=== PATIENT | female | born 1965 | race Caucasian/White ===

== ENCOUNTER 2018-05-07 14:30 | Inpatient (IN) | payer SELFPAY ==
[2018-05-07] MEDS ORDERED: cefTRIAXone SODIUM 2 GM in SODIUM CHL 0.9% 100ML MINI-BAG 100 ML IVPB ONE (14:59)
[2018-05-07] MEDS ORDERED: KETOROLAC TROMETHAMINE INJ 30 MG/ML VIAL IV ONE (14:59)
--- NOTE | 2018-05-07 15:02 | ED.PDOC ---
History of Present Illness - General Chief Complaint: Skin/Abrasion/Tear Stated Complaint: abscess Time Seen by Provider: 05/07/18 14:57 Source: patient Exam Limitations: no limitations - History of Present Illness Initial Comments: patient comes in today sent over for the clinic for worsening infection of her abdomen. Patient states 3 weeks ago she started with what looked like a boil to her on the right side or abdomen. Patient manually manipulated and placed things such as tea bags and vbhj-crs-kofgvau remedies on the area but it continued to worsen. Patient was seen on the sixth in the clinic and started on clindamycin but despite that the infection has significantly worsened. Prior to the clindamycin patient was having fever, chills, and nausea. Since the medication that part has gotten better but the wound on her abdomen has gotten significantly worse. Patient has a history of diabetes mellitus but does not use injections and is only on metformin. Patient has not had any recent injections of the abdomen no recent hospitalizations. Patient also has hyper tension but that is normally well controlled. Patient has never had similar infections. Timing/Duration: getting worse Severity: severe Location: torso Improving Factors: nothing Worsening Factors: nothing Associated Symptoms: fever, malaise Allergies/Adverse Reactions: Allergies NO KNOWN ALLERGY Allergy (Verified 05/07/18 14:49) Home Medications: Ambulatory Orders Clindamycin HCl 300 mg PO TID 05/07/18 Lisinopril 20 mg PO DAILY 05/07/18 Metformin HCl 1,000 mg PO BID 05/07/18 Review of Systems - Review of Systems Constitutional: States: chills, fever, malaise EENTM: States: no symptoms reported Respiratory: States: no symptoms reported Cardiology: States: no symptoms reported Gastrointestinal/Abdominal: States: see HPI Genitourinary: States: no symptoms reported Past Medical History (General) - Patient Medical History Hx Stroke: No Hx Congestive Heart Failure: No Hx Hypertension: Yes Hx Diabetes: Yes Surgical History: tonsillectomy - Vaccination History Hx Influenza Vaccination: No Hx Pneumococcal Vaccination: No - Social History Hx Tobacco Use: Yes Family Medical History - Family History Mother Family History: Unknown Living Status: Unknown Physical Exam - Physical Exam General Appearance: Alert, No apparent distress Eyes, Ears, Nose, Throat Exam: PERRL/EOMI, normal ENT inspection, TMs normal Neck: non-tender, full range of motion, supple, normal inspection Cardiovascular/Chest: normal peripheral pulses, regular rate, rhythm, no edema, no gallop, no murmur Respiratory: chest non-tender, lungs clear, normal breath sounds, no respiratory distress Gastrointestinal/Abdominal: other - 7 x 5 inch area of induration, calor, and erythema. Central area of scabbed purulent lesions with no fluctulance Back Exam: normal inspection Extremity: normal range of motion, non-tender Neurologic: alert, oriented x 3 Skin Exam: other Skin Problem Location: torso Skin Character: drainage, erythema, thickening, warm Progress - Progress Progress: 05/07/18 15:56 discussed with production posting clerk practioner Heath Fine. Will get soft tissue ultrasound and admit. - Results/Orders Results/Orders: 05/07/18 14:59 [email or web address] SODIUM [Rocephin] 2 gm Sodium Chl 0.9% 100Ml Mini-Bag [NS 100ml MINI-BAG+] 100 ml IVPB ONCE 05/07/18 15:00 WOUND CULTURE Stat 05/07/18 15:51 1000MG ONCE ONE (ED ORDER) Vancomycin HCl Inj 1,000 mg Sodium Chloride 0.9% 250Ml [NS 250ml] 250 ml IVPB ONCE 05/07/18 15:54 Soft Tissue,Abdomen [US] Stat Laboratory Results WBC 12.6 K/mm3 (4.8-10.8) H 05/07/18 14:59 RBC 5.01 M/mm3 (4.20-5.40) 05/07/18 14:59 Hgb 14.9 gm/dL (12.0-16.0) 05/07/18 14:59 Hct 44.4 % (36.0-47.0) 05/07/18 14:59 MCV 88.6 fl (81.0-99.0) 05/07/18 14:59 MCH 29.7 pg (27.0-31.0) 05/07/18 14:59 MCHC 33.6 g/dL (33.0-37.0) 05/07/18 14:59 RDW 12.8 % (11.5-14.5) 05/07/18 14:59 Plt Count 364 K/mm3 (130-400) 05/07/18 14:59 MPV 8.9 fl (7.40-10.4) 05/07/18 14:59 Absolute Neuts (auto) 9.10 K/uL (1.8-6.8) H 05/07/18 14:59 Absolute Lymphs (auto) 2.10 K/uL (1.0-3.4) 05/07/18 14:59 Absolute Monos (auto) 1.00 K/uL (0.2-0.8) H 05/07/18 14:59 Absolute Eos (auto) 0.20 K/uL (0.0-0.4) 05/07/18 14:59 Absolute Basos (auto) 0.10 K/uL (0.0-0.1) 05/07/18 14:59 Neutrophils % 72.2 % (42.0-78.0) 05/07/18 14:59 Lymphocytes % 16.8 % (20.0-50.0) L 05/07/18 14:59 Monocytes % 8.2 % (2.0-9.0) 05/07/18 14:59 Eosinophils % 1.7 % (1.0-5.0) 05/07/18 14:59 Basophils % 1.1 % (0.0-2.0) 05/07/18 14:59 Sodium 134 mmol/L (135-145) L 05/07/18 14:59 Potassium 3.8 mmol/L (3.6-5.0) 05/07/18 14:59 Chloride 100 mmol/L (101-111) L 05/07/18 14:59 Carbon Dioxide 25 mmol/L (21-31) 05/07/18 14:59 Anion Gap 12.8 (12-18) 05/07/18 14:59 BUN 22 mg/dL (7-18) H 05/07/18 14:59 Creatinine 0.70 mg/dL (0.6-1.3) 05/07/18 14:59 BUN/Creatinine Ratio 31.4 (10-20) H 05/07/18 14:59 Random Glucose 315 mg/dL (70-105) H 05/07/18 14:59 Serum Osmolality 283.6 mOsm/L (275-295) 05/07/18 14:59 Lactic Acid 1.1 mmol/L (0.5-2.2) 05/07/18 14:59 Calcium 9.0 mg/dL (8.4-10.2) 05/07/18 14:59 Total Bilirubin 0.7 mg/dL (0.2-1.0) 05/07/18 14:59 AST 18 IU/L (10-42) 05/07/18 14:59 ALT 22 IU/L (10-60) 05/07/18 14:59 Alkaline Phosphatase 57 IU/L (42-121) 05/07/18 14:59 Serum Total Protein 7.3 gm/dL (6.4-8.2) 05/07/18 14:59 Albumin 3.9 g/dl (3.2-5.5) 05/07/18 14:59 Globulin 3.4 gm/dL (2.3-3.5) 05/07/18 14:59 Albumin/Globulin Ratio 1.1 (1.1-1.9) 05/07/18 14:59 Departure - Departure Clinical Impression: Cellulitis Qualifiers: Site of cellulitis: trunk Site of cellulitis of trunk: abdominal wall Qualified Code(s): L03.311 - Cellulitis of abdominal wall Disposition: Discharge to Home or Self Care Condition: Fair Departure Forms: ED Discharge - Pt. Copy, Patient Portal Self Enrollment Instructions: DI for Abrasion Referrals: Jeni Butcher NP [Primary Care Provider] - 1-2 Weeks Home Medications: Ambulatory Orders Clindamycin HCl 300 mg PO TID 05/07/18 Lisinopril 20 mg PO DAILY 05/07/18 Metformin HCl 1,000 mg PO BID 05/07/18
[2018-05-07] MEDS ORDERED: SODIUM CHL 0.9% 100ML MINI-BAG 100 ML IVPB ONE (15:06)
[2018-05-07] MEDS ORDERED: VANCOMYCIN HCL INJ 1,000 MG in SODIUM CHLORIDE 0.9% 250ML 250 ML IVPB ONE (15:51)
[2018-05-07] MEDS ORDERED: SODIUM CHLORIDE 0.9% 250ML 250 ML ONE (15:58)
[2018-05-07] MEDS ORDERED: VANCOMYCIN HCL INJ 1,000 MG VIAL IVPB ONE (15:58)
--- NOTE | 2018-05-07 16:43 | US ---
EXAM DESCRIPTION: Soft Tissue,Abdomen CLINICAL HISTORY: ?panniculitus vs abscess KNot on Right lower abdomen for 3 weeks, more inflamed with skin breakdown COMPARISON: None. TECHNIQUE: 2-D sonography FINDINGS: Exam reveals a cystic and solid region in the right lower quadrant in the subcutaneous tissues consistent with a clinical diagnosis of panniculitis. I feel there is a small subcutaneous abscess also present. The region measures 3.74 x 6.71 x 3.83 cm IMPRESSION: A subcutaneous region of inflammation /abscess formation is observed in the anterior tissues of the abdominal wall to the right of midline Electronically signed by: Thierry Kwon MD 05/07/2018 4:41 PM CDT
--- NOTE | 2018-05-07 16:43 | HP ---
SUPERVISING PHYSICIAN: Roverto Agustin MD CHIEF COMPLAINT: Cellulitis abscess. HISTORY OF PRESENT ILLNESS: Ms. Rousseau is a 52 year-old female patient who was sent from [facility] today with an worsening area of cellulitis to her abdomen on the right side. The patient notes that over the last three weeks she had developed what she thought was a boil on the right side of her abdomen and at some point self-manipulated it trying to resolve with tea bags and mpig-lwm-[id number] remedies but the area continued to increase in erythema and pain. She was then seen at [facility] on 05/04/18 and started on Clindamycin and failed to respond to treatment to any significant amount. She noted she had been having some fever, chills and nausea and that the wounds on her abdomen over the last several days significantly worsened. She does have a history of diabetes but does not use any insulin and denies any recent trauma to her abdomen. Laboratory studies showed she had a white count of 12,600 at time of admission with early left shift. Vital signs showed she was afebrile with a temperature of 96.8 and chemistries showed her lactic was within normal limits at 1.1. Dr. Cespedes, Emergency Room physician, requested the patient be admitted for further evaluation and treatment with concerns for possible area of abscess with panniculitis of the side of her abdomen, having failed to respond to her outpatient treatment measures. She was started on vancomycin in the Emergency Room as well as Rocephin. The patient is now going to be admitted to the medical/surgical floor for ongoing further evaluation and treatment as well as surgical consultation by Dr. Mc and ultrasound to further assess the abdomen for a possible abscess needing incision and drainage. PAST MEDICAL HISTORY: 1. Hypertension. 2. Diabetes mellitus type 2 on oral therapy. 3. Chronic nicotine addiction in a current smoker. 4. Gastroesophageal reflux disease. 5. Depression and anxiety. PAST SURGICAL HISTORY: 1. Hysterectomy and removal of benign cervical tumor in 2011. 2. Cholecystectomy. 3. Caesarean section. CURRENT MEDICATIONS: 1. Hydrochlorothiazide 12.5 mg daily. 2. Lisinopril 20 mg daily. 3. Metformin 1000 mg twice a day. ACUTE MEDICATIONS: 1. Clindamycin 300 mg 3 times a day since 05/04/18. 2. P.r.n. albuterol nebulizer as needed for shortness of breath. ALLERGIES: No known drug allergies. FAMILY HISTORY: Noncontributory. 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 She is single. She lives in [place]. She smokes currently about half a pack a day and has since age 19. She denies any alcohol usage, having her last drink in 2001. Denies any illicit drug use. REVIEW OF SYSTEMS: CONSTITUTIONAL: As noted that she has had some fevers, chills and general malaise for the last 2 to 3 days. HEENT: She denies any nasal congestion, headaches. sore throat, earaches, headaches. CHEST: Denies shortness of breath, wheezing or coughing. HEART: Denies chest pain, palpitations or syncopal episodes. ABDOMEN: As noted in history of present illness. She denies any abdominal pain other than the area noted on history of present illness to abdominal wall but denies any changes in bowel habits, hematochezia, hematemesis. GENITOURINARY: Denies dysuria, hematuria, polyuria. NEUROLOGIC: Denies headaches, seizure activities, ataxia. PHYSICAL EXAMINATION: VITAL SIGNS: Temperature 96.8, pulse 82, blood /72, respirations 18 , saturation 99% on room air. Admission weight 78.9 kg. GENERAL: On examination in the Emergency Room the patient appeared to be comfortable and in no acute distress, although she was tearful and a little anxious. She was alert. HEENT: Tympanic membranes clear bilaterally. Oropharynx pink, moist without any lesions. NECK: Supple, non-tender, full range of motion, no jugular venous distention. CHEST: Clear to auscultation bilaterally without any rhonchi, rales, or wheezes. CARDIOVASCULAR: Regular rate and rhythm without appreciable murmurs, rubs, or gallops. ABDOMEN: Soft except for a 7 x 5 area of induration, erythema to the right lower panniculus in the lateral aspect that shows some area of ecchymosis and mottleing with some fluctuation and areas of open sinuses but no obvious drainage for cultures. The area was noted to be indurated and quite tender on palpation and also mottleing along with the ecchymosis. EXTREMITIES: Without cyanosis, clubbing, or edema. NEUROLOGIC: She is alert and oriented x3. Facial features are symmetrical. Extraocular movements within normal limits. There is no noted nystagmus. Cranial nerves II through XII are grossly intact. LABORATORY: White count showed a leukocytosis of 12,600 with a left shift. Chemistries showed a mildly low sodium of 134, potassium 3.8, BUN 22, creatinine 0.7 with lactic acid 1.1. Liver functions all show to be within normal limits. Urinalysis pending. MICROBIOLOGY: No cultures pending. Waiting for her assessment, possible incision and drainage surgery in the morning. RADIOLOGY: Ultrasound of the abdomen of area in question per radiology interpretation shows a subcutaneous region, inflammation/abscess formation observed in the anterior tissues of the abdominal wall, midline, measuring 3.74 cm x 6.71 x 3.8 cm consistent with clinical diagnosis of panniculitis. ASSESSMENT: 1. Panniculitis with abscess to the right lower quadrant having failed to response to outpatient treatment with clindamycin. 2. Type 2 diabetes mellitus on oral therapy. 3. History of hypertension. 4. History of gastroesophageal reflux disease. PLAN: The patient is going to be admitted and started on IV antibiotics to include vancomycin and Rocephin. Dr. Mc has been consulted and has recommended the patient be made n.p.o. overnight with plans to possibly undergo incision and drainage without sedation in the operating room once he is able to review the ultrasound with radiology. She will be on insulin slightly scale per protocol. Will hold off on Lovenox tonight awaiting possible surgery in the morning. Will resume home medications but hold those as appropriate in the morning prior to any procedures. She will go ahead and have a nicotine patch placed and is again encouraged to stop smoking with warnings of slow healing with wound management. Will go ahead and start her on some IV fluids tonight as well as vancomycin per pharmacy protocol and continued Rocephin awaiting further evaluation in the morning by Dr. Mc. Will check labs in the morning to include a CBC and BNP and anticipate length of stay to be at least 2 to 3 days. Most certainly if she does have incision and drainage she will most likely benefit from aggressive wound management which will need to be started on discharge planning. Until discharge, we will continue to monitor appropriately. #[id number] [facility]
[2018-05-07] MEDS ORDERED: ONDANSETRON INJ 4 MG/2 ML VIAL IV PRN (17:20)
[2018-05-07] MEDS ORDERED: SODIUM CHLORIDE 0.9% (FLUSH) 10 ML SYG IV PRN (17:20)
[2018-05-07] MEDS ORDERED: VANCOMYCIN PER PHARMACY INJ SCH (17:30)
[2018-05-07] MEDS ORDERED: IV SET AND CAP CHANGE INJ INJ SCH (17:30)
[2018-05-07] MEDS: MORPHINE SULFATE INJ 10 MG/ML VIAL IV PRN ×2 (17:51→22:39)
[2018-05-07] MEDS ORDERED: DEXTROSE 50% 25 GM/50 ML SYG IV PRN (18:32)
[2018-05-07] MEDS ORDERED: GLUCAGON INJ 1 MG VIAL SUBCU PRN (18:32)
[2018-05-07] MEDS ORDERED: INSULIN LISPRO 100 UNITS/ML PEN SUBCU ONE (19:55)
[2018-05-07] MEDS ORDERED: CHLORHEXIDINE GLUCONATE 4 % 15 ML UD TOP ONE (19:58)
[2018-05-07] MEDS: NICOTINE PATCH 14 MG TD SCH (20:21)
--- NOTE | 2018-05-07 20:41 | CONS ---
DATE OF CONSULTATION: 05/07/18 HISTORY OF PRESENT ILLNESS: The patient is a 43 year-old female who has had a lesion on her right lower abdominal wall for 3 weeks. She had tried to treat it personally and it worsened. She was started on clindamycin at the [facility], but it continues to worsen. Her blood sugars are elevated and she has developed fever, chills and nausea, and was admitted for failure of outpatient therapy of cellulitis or panniculitis of the right lower abdominal wall. PAST MEDICAL HISTORY: 1. Diabetes for which she takes oral agents. 2. History of hypertension. PAST SURGICAL HISTORY: She has had no abdominal surgery. 1. Status post tonsillectomy. CURRENT MEDICATIONS: 1. Clindamycin. 2. Lisinopril. 3. Metformin. ALLERGIES: NO KNOWN DRUG ALLERGIES. FAMILY HISTORY: Unremarkable. SOCIAL HISTORY: The patient is . Continues to smoke. REVIEW OF SYSTEMS: She denies productive cough, weight loss, chest pain, shortness of breath and denies change in her bowel habits, hematemesis, hematochezia, melena and denies urinary symptoms. PHYSICAL EXAMINATION: VITAL SIGNS: Currently afebrile. Blood pressure 148/86, pulse 86, respiratory rate 20. GENERAL: The patient is awake, alert, cooperative and in mild to moderate distress. HEENT: Head and neck examination reveals her sclera to be nonicteric. Mucous membranes are moist. NECK: She has no masses. BACK: Without CVA tenderness. ABDOMEN: Soft and benign except for the panniculus in the right lower quadrant. She has a large area of erythema approximately 15 x 20 cm. Centrally there is an area of ecchymosis and mottling with fluctuance and several open sinuses which are not currently draining. It is quite tender with a central area of induration underlying the area of mottling and ecchymosis. EXTREMITIES: Without clubbing, cyanosis or edema. LABORATORY: White count 12,000, 72% neutrophils, hemoglobin 14.9, platelet count 364. Chemistries reveal blood sugar 315, potassium 3.8, creatinine 0.70. Normal liver function testing. Ultrasound reveals some fluid in the subcutaneous tissue. IMPRESSION: 1. Panniculitis with abscess in the right lower quadrant. PLAN: She has been started on IV antibiotics. She will be made NPO overnight with the plan of reviewing the ultrasound with the radiologist to rule out a hernia in this area, and then probably undergo incision and drainage with IV sedation tomorrow in the operating room. #[id number] MTDD
[2018-05-07] MEDS ORDERED: INSULIN LISPRO 100 UNITS/ML PEN SUBCU SCH (21:00)
[2018-05-07] MEDS: KCL 20 MEQ/NS 1,000 ML IVS PRN (22:28)
[2018-05-08] MEDS: INSULIN LISPRO 100 UNITS/ML PEN SUBCU SCH ×5 (00:29→21:16)
[2018-05-08] MEDS ORDERED: cefTRIAXone SODIUM 1 GM VIAL ONE ×3 (00:33→20:48)
[2018-05-08] MEDS ORDERED: SODIUM CHL 0.9% 50ML MIN-BAG+ 50 ML IVPB ONE ×3 (00:33→20:47)
[2018-05-08] MEDS: cefTRIAXone SODIUM 1 GM in SODIUM CHL 0.9% 50ML MIN-BAG+ 50 ML IVPB SCH ×2 (02:00→13:55)
[2018-05-08] MEDS: KCL 20 MEQ/NS 1,000 ML IVS PRN ×3 (07:05→15:15)
[2018-05-08] MEDS: NICOTINE PATCH 14 MG TD SCH (09:01)
[2018-05-08] MEDS ORDERED: VANCOMYCIN HCL INJ 500 MG VIAL ONE ×2 (10:18→20:47)
[2018-05-08] MEDS ORDERED: SODIUM CHLORIDE 0.9% 250ML 250 ML ONE ×2 (10:19→20:47)
[2018-05-08] MEDS ORDERED: VANCOMYCIN HCL INJ 1,000 MG VIAL IVPB ONE ×2 (10:19→20:48)
[2018-05-08] MEDS: MORPHINE SULFATE INJ 10 MG/ML VIAL IV PRN ×2 (10:26→22:53)
[2018-05-08] MEDS ORDERED: VANCOMYCIN HCL INJ 1,000 MG, VANCOMYCIN HCL INJ 500 MG in SODIUM CHLORIDE 0.9% 500ML 50... IVPB SCH (10:30)
[2018-05-08] MEDS ORDERED: VANCOMYCIN HCL INJ 1,000 MG, VANCOMYCIN HCL INJ 500 MG in SODIUM CHLORIDE 0.9% 250ML 25... IVPB SCH (10:30)
[2018-05-08] MEDS: VANCOMYCIN HCL INJ 1,000 MG, VANCOMYCIN HCL INJ 500 MG in SODIUM CHLORIDE 0.9% 250ML 25... IVPB SCH ×2 (10:41→22:54)
[2018-05-08] MEDS ORDERED: MIDAZOLAM INJ 2 MG/2 ML VIAL ONE (13:45)
[2018-05-08] MEDS ORDERED: fentaNYL CITRATE INJ 50 MCG/ML AMP ONE (13:45)
[2018-05-08] MEDS ORDERED: cefTRIAXone SODIUM 1 GM VIAL IVPB ONE (14:00)
[2018-05-08] MEDS ORDERED: SODIUM BICARBONATE VIAL 50 MEQ/50 ML VIAL ONE (14:10)
[2018-05-08] MEDS ORDERED: LIDOCAINE 1% 50 ML VIAL INJ ONE (14:10)
[2018-05-08] MEDS ORDERED: PLAIN PACKING STRIP 1/4 1 EA BTTL TOP ONE ×2 (14:35→15:02)
[2018-05-08] MEDS ORDERED: PLAIN PACKING STRIP 1 1 EA BTTL TOP ONE (14:36)
[2018-05-08] MEDS ORDERED: PLAIN PACKING STRIP 1/2 1 EA BTTL TOP ONE ×2 (14:36→15:03)
--- NOTE | 2018-05-08 16:01 | OP ---
DATE OF PROCEDURE: 05/08/18 PREOPERATIVE DIAGNOSIS: 1. Complex abscess right lower quadrant abdominal wall. POSTOPERATIVE DIAGNOSIS: 1. Complex abscess right lower quadrant abdominal wall. SURGICAL PROCEDURE: 1. Incision, drainage and debridement of complex abscess subcutaneous tissue right lower quadrant abdominal wall. SURGEON: Jeovanny Mc M.D. DEICER ELEMENT WINDER MACHINE: None. ANESTHESIA: Local MAC with 1% Lidocaine with bicarb. INDICATION FOR SURGERY: The patient is a 52 year-old female who developed some kind of skin lesion which she manipulated some time ago, developed cellulitis and pain and presented to the [facility] where she was treated with oral antibiotics. It has worsened and become more painful. She was admitted yesterday and started on IV antibiotics, and was cultured from the wound drainage. She was brought to the surgical suite today after the risks, benefits, and alternatives to the procedure were discussed and accepted for an incision and drainage of the abscess. FINDINGS AT TIME OF PROCEDURE: The abscess cavity was complex with some necrotic tissue. It had a moderate amount of seropurulent, foul-smelling pus with some necrotic tissue including the overlying skin. DESCRIPTION OF PROCEDURE: After the patient underwent local MAC anesthesia, she was prepped and draped in the usual sterile manner. At this point, a surgical time out was taken. An elliptical incision was fashioned overlying the fluctuant area of necrotic tissue first with infiltration of anesthesia, then with a sharp knife. Eventually the abscess cavity was entered and a large amount of fluid was drained using suction. The elliptical incision was made taking a majority of the necrotic skin. It was then debrided bluntly, irrigated copiously with saline and then dilute Betadine saline. When this was done, hemostasis was obtained with electrocautery. When hemostasis was noted to be adequate, it was irrigated one more time and then packed with 2 inch Tennille that was moistened with dilute Betadine solution. Sterile pressure dressing was applied. The patient was then taken back to the Med/Surg floor in stable condition. Estimated blood loss was 50 to 75 mL. All sponge, needle and instrument counts were correct. #[id number] [facility]
--- NOTE | 2018-05-08 23:18 | PN ---
DATE: 05/08/18 SUPERVISING PHYSICIAN: Roverto Agustin M.D. SUBJECTIVE: The patient was seen after she was taken to surgery earlier today for an incision and drainage of the abscess to the right abdominal wall. She was alert and oriented postoperatively and was in no distress. She had no intraoperative complications. OBJECTIVE: VITAL SIGNS: Temperature 99.8, pulse 85, blood pressure 129/86, respirations 20, satting 95% on room air. I's and O's showed a negative balance of 87 with 1013 in, 1100 out. Weight was 79.4 kg. GENERAL: The patient is seen postoperatively. She is alert, in no distress. She is cooperative and appears to be comfortable. CHEST: Lungs were clear to auscultation. HEART: Regular rate and rhythm. ABDOMEN: Soft, non-tender except for the incisional site to the lower right abdominal wall with a large postoperative dressing in place. EXTREMITIES: No clubbing, cyanosis or edema. NEUROLOGIC: She is alert and oriented times three. LABORATORY: Laboratory this morning showed white count 12,900 with platelet count 339,000. Differential showed to be just a very mild left shift. Chemistries showed normal electrolytes with BUN 18, creatinine 0.5. Blood sugars have been between 169 and 261. Calcium 8.5. MICROBIOLOGY: Wound culture of the abdomen is pending, collected in the E. R. PROCEDURES: 1. Incision and drainage by Dr. Mc. Please see his Operative Report. ASSESSMENT: 1. Incision, drainage and debridement of complex abscess subcutaneous tissue right lower quadrant abdominal wall having previously failed to respond to outpatient treatment plan with clindamycin with surgery performed by Dr. Mc. 2. Type 2 diabetes mellitus on oral therapy. 3. History of hypertension. 4. History of gastroesophageal reflux disease. PLAN: Will continue with antibiotic coverage with vancomycin and Rocephin, and defer surgical management to Dr. Mc along with wound management. Will await cultures to further target antibiotic therapy and anticipate hopefully discharging in the next 24 to 48 hours. The patient will need aggressive wound management which is still undecided. Possibly could be done at [facility] during a week day, but again further plans are in the works. Until then continue to monitor and treat appropriately. #[id number] [facility]
[2018-05-09] MEDS: cefTRIAXone SODIUM 1 GM in SODIUM CHL 0.9% 50ML MIN-BAG+ 50 ML IVPB SCH ×2 (02:05→14:23)
[2018-05-09] MEDS: INSULIN LISPRO 100 UNITS/ML PEN SUBCU SCH ×4 (07:40→21:05)
[2018-05-09] MEDS ORDERED: VANCOMYCIN HCL INJ 500 MG VIAL ONE ×2 (08:38→20:06)
[2018-05-09] MEDS ORDERED: SODIUM CHLORIDE 0.9% 250ML 250 ML ONE ×2 (08:38→20:06)
[2018-05-09] MEDS ORDERED: VANCOMYCIN HCL INJ 1,000 MG VIAL IVPB ONE ×2 (08:39→20:07)
[2018-05-09] MEDS: NICOTINE PATCH 14 MG TD SCH ×2 (09:04→09:06)
[2018-05-09] MEDS: VANCOMYCIN HCL INJ 1,000 MG, VANCOMYCIN HCL INJ 500 MG in SODIUM CHLORIDE 0.9% 250ML 25... IVPB SCH ×2 (11:06→23:15)
[2018-05-09] MEDS ORDERED: SODIUM CHL 0.9% 50ML MIN-BAG+ 50 ML IVPB ONE ×2 (13:22→20:07)
[2018-05-09] MEDS ORDERED: cefTRIAXone SODIUM 1 GM VIAL ONE ×2 (13:23→20:07)
[2018-05-09] MEDS ORDERED: BIFIDOBACTERIUM INFANTIS 4 MG CAP ONE (21:50)
[2018-05-09] MEDS: BIFIDOBACTERIUM INFANTIS 4 MG CAP PO SCH (23:15)
[2018-05-10] MEDS: cefTRIAXone SODIUM 1 GM in SODIUM CHL 0.9% 50ML MIN-BAG+ 50 ML IVPB SCH ×2 (01:32→14:33)
[2018-05-10] MEDS ORDERED: LIDOCAINE 1% 10 ML VIAL INJ ONE (07:00)
[2018-05-10] MEDS ORDERED: PROPOFOL 200 MG/20 ML VIAL IV ONE (07:00)
[2018-05-10] MEDS: INSULIN LISPRO 100 UNITS/ML PEN SUBCU SCH ×3 (08:10→17:20)
[2018-05-10] MEDS: BIFIDOBACTERIUM INFANTIS 4 MG CAP PO SCH (08:13)
--- NOTE | 2018-05-10 09:43 | PN ---
SUPERVISING PHYSICIAN: Gregorio Agustin MD DATE: 05/09/18 SUBJECTIVE: The patient is sitting in her bed, eating her meal. She has no complaints of nausea, vomiting, diarrhea, constipation, chest pain or shortness of breath. She is ready to go home. We discussed as soon as her culture and sensitivity are back, we can discharge her on an oral medication home. OBJECTIVE: VITAL SIGNS: Afebrile. Heart rate 71. Blood pressure 125/71. Respiratory rate 16. O2 saturation 93% on room air. RESPIRATORY: Essentially clear to auscultation bilaterally. CARDIAC: Regular rate and rhythm. GASTROINTESTINAL: Abdomen is soft, nondistended, nontender except at the incisional site to the lower right abdominal wall, there is a dressing in place that is dry and intact. NEUROLOGIC: Awake, alert and oriented times three. LABORATORY: CBC is basically within normal limits. Blood sugars running between 169 and 263. Wound cultures show heavy growth of Klebsiella pneumoniae as well as heavy growth of Serratia marcescens. All other labs and films have been reviewed via the EMR. ASSESSMENT: 1. Incision, drainage and debridement of complex abscess subcutaneous tissue right lower quadrant abdominal wall having previously failed to respond to outpatient treatment plan with clindamycin with surgery performed by Dr. Mc, general surgery. 2. Type 2 diabetes mellitus on oral therapy. 3. History of hypertension. 4. History of gastroesophageal reflux disease. PLAN: We will continue present supportive care. We will continue her present antibiotics until the culture and sensitivities are back. Hopefully tomorrow those will be back so we can send her home on some oral antibiotics. We will defer to Dr. Mc for wound management and his recommendations. She will need aggressive wound care management after discharge. Hopefully she can have that done at [facility], but we will continue to pursue wound care over the weekend. Otherwise, we will continue to monitor the patient closely and follow as needed. We will hope for discharge sometime tomorrow. #[id number] [facility]
[2018-05-10] MEDS ORDERED: SODIUM CHLORIDE 0.9% 250ML 250 ML ONE (12:16)
[2018-05-10] MEDS ORDERED: VANCOMYCIN HCL INJ 500 MG VIAL ONE (12:16)
[2018-05-10] MEDS ORDERED: VANCOMYCIN HCL INJ 1,000 MG VIAL IVPB ONE (12:16)
[2018-05-10] MEDS: VANCOMYCIN HCL INJ 1,000 MG, VANCOMYCIN HCL INJ 500 MG in SODIUM CHLORIDE 0.9% 250ML 25... IVPB SCH (12:27)
[2018-05-10 14:09] VITALS: BP 154/82; TEMP 98.2; O2SAT 100
[2018-05-10] MEDS ORDERED: cefTRIAXone SODIUM 1 GM VIAL ONE (14:26)
[2018-05-10] MEDS ORDERED: SODIUM CHL 0.9% 50ML MIN-BAG+ 50 ML IVPB ONE (14:26)
[2018-05-10] MEDS ORDERED: hydroCHLOROthiazide 12.5 MG CAP PO SCH (15:15)
[2018-05-10] MEDS ORDERED: LISINOPRIL 10 MG TAB PO SCH (15:15)
[2018-05-10] MEDS ORDERED: levoFLOXacin 500 MG TAB PO ONE (16:28)
[2018-05-10] MEDS ORDERED: levoFLOXacin 500MG IV 500 MG in PREMIX BAG 1 BAG IVPB SCH (16:30)
[2018-05-10] MEDS ORDERED: metFORMIN HCL 500 MG TAB PO SCH (17:00)
[2018-05-10] MEDS ORDERED: BIFIDOBACTERIUM INFANTIS 4 MG CAP PO SCH (23:00)
--- NOTE | 2018-05-11 21:05 | DS ---
SUPERVISING PHYSICIAN: Roverto Augstin M.D. DISCHARGE DIAGNOSIS: 1. Incision, drainage and debridement of complex abscess subcutaneous tissue right lower quadrant abdominal wall having previously failed to respond to outpatient treatment plan with clindamycin with surgery performed by Dr. Mc, general surgery. 2. Type 2 diabetes mellitus on oral therapy. 3. History of hypertension. 4. History of gastroesophageal reflux disease. HISTORY OF PRESENT ILLNESS: This is a 52 year-old female patient who was sent from [facility] on the date of admission with a worsening area of cellulitis to her abdomen on the right side. The patient noted that over the three previous weeks she developed what she thought was a boil on the right side of her abdomen and at some point self-manipulated it trying to resolve. Used tea bags and [id number] remedies but the area continued to increase in erythema and pain. She was seen at [facility] on 05/04/18 and started on Clindamycin. She failed to respond to that treatment. She had some fevers and chills with nausea and that the wounds on her abdomen over several days prior to her admission had significantly worsened. She does have a history of diabetes but does not use insulin and denies any recent trauma to her abdomen. At the time of admission her white count was 12,600 with an early left shift. Her vital signs showed she was afebrile with a temperature of 96.8. Chemistries showed lactic acid was within normal limits at 1.1. Dr. Cespedes, the Emergency Room physician, requested the patient be admitted for further evaluation and treatment with the concern for possible area of abscess with panniculitis on the side of her abdomen and having failed outpatient treatment measures. She was started on vancomycin in the Emergency Room as well as Rocephin. The patient was admitted to the Medical/Surgical floor for ongoing evaluation and treatment as well as a surgical consultation by Dr. Mc. HOSPITAL COURSE: An ultrasound was obtained to assess the abscess. It showed a subcutaneous region of inflammation/abscess formation observed in the anterior tissues of the abdominal wall to the right of midline. On the following day, Dr. Mc took the patient to the Surgical Suite and did an incision and drainage of her abdomen due to panniculitis with abscess in the right lower quadrant. She continued on her IV antibiotics. She had no problems intraoperatively. Dr. Mc did her dressing changes daily. On the date of admission he had given her a complete dressing change instructions. WBCs normalized to 10.3 with neutrophils of 66.9. Blood sugars remained in the upper 100s to the low 200s. Her initial culture for her wound showed Serratia and Klebsiella. The [employer] was not available at the time of discharge. She was given 1 dose of Levaquin and she will be discharged home in stable condition. DISCHARGE PLAN: The patient will be discharged home in stable condition. Her wound care instructions have been given per Dr. Mc and she is to call his office next week and obtain a followup appointment with him. I will call her tomorrow as soon as the culture and sensitivities are back to prescribe her antibiotics and she has agreed to pick those up after my call. She is to return to the hospital or call Dr. Mc's office for any problems or complications. She is to resume her previous medications and her previous activity. DISCHARGE MEDICATIONS: 1. Metformin. 2. Lisinopril. 3. Clindamycin. 4. Hydrochlorothiazide. 5. Align. ADDENDUM 05/11/18: The patient was called with the results from her [employer] for her wound. The wound is sensitive to Levaquin and I have called in 7 days of Levaquin to [facility], and she agreed to pick those up and continue with those as well as followup with Dr. Mc by calling his office on Sunday for an appointment. #[id number] [facility]
== END 2018-05-10 17:15 | disposition home or self-care (01) | DRG 572 ==
LOC: ER 14:30 → MS 16:42
PROVIDERS: ADMIT Nurse Practitioner Family; ATTEND Nurse Practitioner Acute Care
PROC: 0JB80ZZ Excision of Abdomen Subcutaneous Tissue and Fascia, Open Approach (ICD-10-PCS; principal; 2018-05-08 13:56)
DX: L02.211 Cutaneous abscess of abdominal wall (principal); E11.9 Type 2 diabetes mellitus without complications; I10 Essential (primary) hypertension; K21.9 Gastro-esophageal reflux disease without esophagitis; L03.311 Cellulitis of abdominal wall; B96.1 Klebsiella pneumoniae [K. pneumoniae] as the cause of diseases classified elsewhere; B96.89 Other specified bacterial agents as the cause of diseases classified elsewhere; M79.3 Panniculitis, unspecified; Z79.84 Long term (current) use of oral hypoglycemic drugs; F17.210 Nicotine dependence, cigarettes, uncomplicated; F41.9 Anxiety disorder, unspecified; F32.9 Major depressive disorder, single episode, unspecified

== ENCOUNTER → 2018-06-07 | Outpatient (CLI) | payer OTHER, SELFPAY ==
--- NOTE | 2018-06-08 15:02 | CT ---
Procedure: CT LUNG SCREENING Exam Date: 06/07/2018. Ordering Provider: Amrik Bronson Clinical Indication: CHRONIC SMOKER This patient meets eligibility criteria for low-dose CT lung cancer screening. Comparison: None. Technique: Using a multislice scanner, sequential helical axial imaging was obtained in the thorax, 2.5 mm thickness, 2.5 mm separation, from the level of the thoracic inlet through the lung bases without IV contrast. A low dose protocol was utilized: CTDI: 1.75 mGy. 120. kVp. 45 mA. 2D sagittal and coronal reconstructed images, 6.0 mm thickness, were obtained. This exam was performed according to our departmental dose optimization program which includes use of automated exposure control, adjustment of the mA and/or kV according to patient size and/or use of iterative reconstruction technique. Nodule measurements under 10 mm are given as mean value of 3 axes diameters. FINDINGS: Lungs and large airways: Groundglass nodule 3 mm in the subpleural lateral right upper lobe on axial image 51. 2 mm subpleural solid nodule lateral left upper lobe on image 33. 2 mm subpleural solid nodule inferior lingula laterally on image 65. 3 mm nodule versus pleural thickening abutting the posterior recess in the left lower lobe on image 81. No abnormal nodules masses or infiltrates. Pleura: Bilateral focal areas of pleural thickening and more general thickening but no effusion or pneumothorax. No pleural calcification. Mediastinum and suraj: evaluation limited by low dose technique and lack of IV contrast. Unremarkable. Heart and great vessels: Aortic arch atherosclerotic calcifications. Also proximal brachiocephalic vessels minimal in the descending aorta. Chest wall, lower neck, axillae: Evaluation also limited by same factors as described above. Unremarkable. Upper abdomen: Negative. Osseous structures: Evaluation limited by low dose MIP technique. Multilevel levels of spondylosis in the thoracic spine. Degenerative changes in the sternum and sternoclavicular joints. No lytic or blastic lesions. IMPRESSION: No abnormal nodules, masses, or infiltrates. No significant emphysematous changes. No pleural effusion or pneumothorax. Scattered nonsignificantly regions of pleural thickening without calcification.. [facility] Best Practice recommendations to follow. Please see below for Lung RADS category and FOLLOW-UP.* *Lung RADS category Category 1 - No nodule or definitely benign nodules (probability of malignancy less than 1%). Follow-up: Continue annual screening with Low Dose Chest CT in 12 months. Electronically signed by: Bashir Ponce MD 06/08/2018 3:01 PM [facility]
== END ==
LOC: CT 13:28
PROVIDERS: ATTEND Family Medicine
DX: Z87.891 Personal history of nicotine dependence (principal)

== ENCOUNTER → 2018-07-01 | Outpatient (CLI) | payer SELFPAY | LOC: LAB.O 07:33 | PROVIDERS: ATTEND Family Medicine | DX: E78.2 Mixed hyperlipidemia (principal); E11.9 Type 2 diabetes mellitus without complications; R53.83 Other fatigue ==

== ENCOUNTER → 2019-06-19 | Outpatient (CLI) | payer OTHER ==
--- NOTE | 2019-06-20 12:16 | CT ---
Procedure: CT LUNG SCREENING Exam Date: 19/06/2019. Ordering Provider: Amrik Bronson Clinical Indication: HISTORY OF TOBACCO ABUSE current cigarette smoker. More than 50 pack years. This patient meets eligibility criteria for low-dose CT lung cancer screening. Comparison: Low-dose CT lung cancer screening examination 07 June 2018. Technique: Using a multislice scanner, sequential helical axial imaging was obtained in the thorax, 2.5 mm thickness, 2.5 mm separation, from the level of the thoracic inlet through the lung bases without IV contrast. A low dose protocol was utilized for BMI less than 30: BMI: 27. CTDI: 1.77 mGy. 120. kVp. 45 mA. DLP 69.74 mGy-cm. 2D sagittal and coronal reconstructed images, 6.0 mm thickness, were obtained. This exam was performed according to our departmental dose optimization program which includes use of automated exposure control, adjustment of the mA and/or kV according to patient size and/or use of iterative reconstruction technique. Nodule measurements under 10 mm are given as mean value of 3 axes diameters. FINDINGS: Lungs and large airways: Bilateral mosaic density upper and lower lung molina. Increasing atelectasis or pleural parenchymal scarring in the left base since the prior study. New 3 mm subpleural solid nodule inferior lateral lingula on axial image 2/49. Similar sized nodule, stable since the prior study, slightly more inferior in a similar location on axial image 2/55. Stable groundglass nodule 3 mm in the subpleural lateral right upper lobe on image 2/46. Stable. 2 mm subpleural solid nodule lateral left upper lobe on image 2/27. No abnormal nodules and no mass. No focal infiltrates.. Pleura and space: Sporadic focal thickening with no effusion or pneumothorax. Mediastinum and suraj: evaluation limited by low dose technique and lack of IV contrast. Small nodes no dominant soft tissue masses. Heart and great vessels: Atherosclerotic calcifications aortic arch, proximal brachiocephalic vessels, and coronary vessels Chest wall, lower neck, axillae: Evaluation also limited by same factors as described above. Bilateral axillary lymph nodes. No dominant solid mass. Upper abdomen: Evaluation limited by low-dose technique. Rounded mass with air-fluid level possibly proximal duodenum anterior to the gallbladder fossa and posterior to left hepatic lobe. No fatty inflammatory changes. Other included organs are unremarkable. No fluid in the gallbladder fossa. Osseous structures: Evaluation limited by low dose MIP technique. Multiple levels of thoracic spondylosis. Manubriosternal arthrosis. IMPRESSION: New 3 mm subpleural solid nodule in the inferior lateral lingula, not clinically significant due to size. Other bilateral nodules are stable.. [facility] Best Practice Recommendations: please see below for Lung RADS category and FOLLOW-UP.* *Lung RADS category CATEGORY 2S- Nodules with a very low likelihood (less than 1%) of becoming a clinically active cancer due to size or lack of growth. Nodules: Perifissural nodule(s) < 10 mm. (526mm3). Solid or part solid nodule(s) less than 6mm (113.1 mm3), new solid nodule less than 4mm (33.5 mm3). Ground glass nodule(s) less than 30mm (67972.2 mm3) or unchanged or slow growing ground glass nodule 30mm or greater. Cat 3 or 4 nodule unchanged for 3 or more months. FOLLOW-UP: Continue annual screening with a Low Dose Chest CT in 12 months for re-evaluation. 2. Lung RADS Modifier S - Clinically Significant or Potentially Clinically Significant Findings (non lung cancer). Spherical object with air-fluid level superior to the gallbladder fossa is more likely to represent distended duodenum then a true mass. If there are clinical findings or symptoms relative to this area, consider right upper quadrant abdominal ultrasound. Electronically signed by: Bashir Ponce MD 06/20/2019 12:14 PM [facility]
== END ==
LOC: CT 15:00
PROVIDERS: ATTEND Family Medicine
DX: Z87.891 Personal history of nicotine dependence (principal); R91.8 Other nonspecific abnormal finding of lung field

== ENCOUNTER → 2020-07-16 | Outpatient (CLI) | payer OTHER ==
--- NOTE | 2020-07-17 23:03 | CT ---
Procedure: CT LUNG SCREENING Exam Date: July 16, 2020. Ordering Provider: Amrik Bronson Clinical Indication: history of smoking . Current cigarette smoker. 15 pack-year history. This patient meets eligibility criteria for low-dose CT lung cancer screening. Comparison: Low-dose CT lung cancer screening examinations May 2018 and May 2019. Technique: Using a multislice scanner, sequential helical axial imaging was obtained in the thorax, 2.5 mm thickness, 2.5 mm separation, from the level of the thoracic inlet through the lung bases without IV contrast. A low dose protocol was utilized for BMI less than 30: BMI: 28. CTDI: 1.76 mGy. 120. kVp. 45 mA. DLP 56 mGy-cm. 2D sagittal and coronal reconstructed images, 6.0 mm thickness, were obtained. This exam was performed according to our departmental dose optimization program which includes use of automated exposure control, adjustment of the mA and/or kV according to patient size and/or use of iterative reconstruction technique. Nodule measurements under 10 mm are given as mean value of 3 axes diameters. FINDINGS: Lungs and large airways: Subpleural solid nodules less than 3 mm diameter in the left upper lobe. Bilateral pleural parenchymal scarring. Scattered bilateral septal thickening. Pleura and space: Minimal focal and diffuse thickening but no acute process. Mediastinum and suraj: evaluation limited by low dose technique and lack of IV contrast. Small nodes with no dominant soft tissue masses. Stable. Heart and great vessels: Coronary artery calcifications and atherosclerotic calcifications aortic arch and descending thoracic aorta and several brachiocephalic vessels. No interval change. Chest wall, lower neck, axillae: Evaluation also limited by same factors as described above. Normal-sized lymph nodes in the axilla. Upper abdomen: Evaluation limited by low-dose technique. No free air or free fluid. Atherosclerotic arterial calcifications. Osseous structures: Evaluation limited by low dose MIP technique. Multiple levels of spondylosis. Arthrosis glenohumeral joints and sternoclavicular joints as well as the sternomanubrial joint. IMPRESSION: Stable subclinical subpleural nodules in the left upper lobe. No new nodules and no abnormal mass. No acute infiltrate.. [facility] Best Practice Recommendations: please see below for Lung RADS category and FOLLOW-UP.* *Lung RADS category Category 1 - No nodule or definitely benign nodules (probability of malignancy less than 1%). Follow-up: Continue annual screening with Low Dose Chest CT in 12 months. Electronically signed by: Bashir Ponce MD 07/17/2020 11:01 PM [facility]
== END ==
LOC: CT 15:19
PROVIDERS: ATTEND Family Medicine
DX: Z12.2 Encounter for screening for malignant neoplasm of respiratory organs (principal); R91.8 Other nonspecific abnormal finding of lung field; Z87.891 Personal history of nicotine dependence